=== PATIENT | male | born 1990 | race Caucasian/White ===

== ENCOUNTER 2017-06-30 17:08 | Emergency (ER) | payer OTHER ==
[2017-06-30 17:14] VITALS: BP 129/72; PULSE 75; TEMP 98; BMI 30.2
[2017-06-30] MEDS ORDERED: METOCLOPRAMIDE HCL INJECTION 10 MG/2 ML VIAL IVPB ONE (17:35)
[2017-06-30] MEDS ORDERED: SODIUM CHLORIDE 0.9% 1000 ML INFUS.BAG IV ONE (17:36)
--- NOTE | 2017-06-30 17:45 | PDOC ---
History of Present Illness - General Chief Complaint: Migraine Headache Stated Complaint: MIGRAINE Time Seen by Provider: 06/30/17 17:23 History Source: Patient Exam Limitations: No Limitations - History of Present Illness Initial Comments: 06/30/17 17:40 26 yr male no PMH presents with recent onset of headaches the past few months that cause nvd , diaphoresis and photophobia. Pt denies fever, no recent travel no head injury. Pt taking fioricet, imitrex at home with no relief. This headache is similair to past headaches however lasting longer. Timing/Duration: reports: constant Severity: Yes: severe Episode Description: left side, photophobia Past History - Past Medical History Allergies/Adverse Reactions: Allergies Allergy/AdvReac Type Severity Reaction Status Date / Time No Known Allergies Allergy Verified 06/30/17 17:14 Home Medications: Ambulatory Orders Acetaminophen/Caffeine/Butalb [Fioricet -] 1 tab PO PRN 06/30/17 Meclizine HCl [Antivert -] 25 mg PO BID PRN #14 tablet 06/30/17 Ondansetron [Zofran *Odt*] 8 mg SL TID #21 od.tablet 06/30/17 Sumatriptan Succinate [Imitrex] 50 mg PO BID 06/30/17 Other medical history: MIGRAINES - Psycho/Social/Smoking Cessation Hx Suicidal Ideation: No Smoking History: Never smoked Information on smoking cessation initiated: No Neuro Specific PMHX - Complaint Specific PMHX Glaucoma: No Herniated Disk: No Laminectomy: No Migraine: Yes (recent diagnosis with migraines) Multiple Sclerosis: No Neuropathy: No TIA: No Review of Systems - Review of Systems Able to Perform ROS?: Yes Is the patient limited [place] proficient: No Constitutional: No: Symptoms Reported HEENTM: No: Symptoms Reported Respiratory: No: Symptoms reported Cardiac (ROS): No: Symptoms Reported ABD/GI: Yes: Symptoms Reported, See HPI, Diarrhea, Nausea, Vomiting : No: Symptoms Reported Musculoskeletal: No: Symptoms Reported Integumentary: No: Symptoms Reported Neurological: Yes: Symptoms reported, Headache *Physical Exam - Vital Signs Last Vital Signs Temp Pulse Resp BP Pulse Ox 98 F 75 18 129/72 100 06/30/17 17:10 06/30/17 17:10 06/30/17 17:10 06/30/17 17:10 06/30/17 17:10 - Physical Exam General Appearance: Yes: Nourished, Mild Distress (appears uncomfortable) HEENT: positive: EOMI, TMs Normal, Other (pos photophobia) Neck: negative: Tender Respiratory/Chest: positive: Lungs Clear, Normal Breath Sounds Cardiovascular: positive: Regular Rhythm, Regular Rate Musculoskeletal: positive: Normal Inspection Extremity: positive: Normal Capillary Refill, Normal Inspection, Normal Range of Motion Integumentary: positive: Dry, Warm, Pale Neurologic: positive: Fully Oriented, Alert, Normal Mood/Affect, Other (gait not tested due to pt dizzyness) ED Treatment Course - LABORATORY CBC & Chemistry Diagram: 06/30/17 17:40 06/30/17 17:40 Medical Decision Making - Medical Decision Making 06/30/17 17:45 cc: headache for 5 days with nvd photophobia pt has had recent dx of migraines, multiple ER visits, ENT and neurologist pt has paperwork showing abnormal finding left side on the EEG and a referal for MRI pt states no meds are helpint at home, is weak and has diff walking due to vertigo pt to be transfered to MAIN ER for further care I have endorsed the pt to Sravanthi NGUYEN charge nurse Jennifer is aware and states to place pt in the hallway outside of the xray room. I have ordered lab work, benadryl, reglan and fluids 06/30/17 17:46 *DC/Admit/Observation/Transfer Diagnosis at time of Disposition: Intractable migraine - Discharge Dispostion Disposition: HOME Condition at time of disposition: Improved - Prescriptions Prescriptions: Meclizine HCl [Antivert -] 25 mg PO BID PRN #14 tablet PRN Reason: dizziness Ondansetron [Zofran *Odt*] 8 mg SL TID #21 od.tablet - Patient Instructions Printed Discharge Instructions: DI for Migraine, DI for Vertigo Additional Instructions: As discussed, you MUST follow up and get the MRI ordered for you by your neurologist. Please take your medications as prescribed. If you experience any new or worsening headache, persistent vomiting, fever, chills, diarrhea, or any new or worsening symptoms, please return to the ER.
[2017-06-30] MEDS ORDERED: METOCLOPRAMIDE HCL INJECTION 10 MG/2 ML VIAL ONE (17:46)
[2017-06-30 17:55] LABS: BASOPHIL 0.2 % (0-2.0); EOSINOPHIL 2.4 % (0-4.5); MCH 30.3 pg (25.7-33.7); MCHC 35.4 g/dl (32.0-35.9); MEAN CELL VOLUME 85.6 fl (80-96); MEAN PLT VOLUME 9.3 fl (7.5-11.1); NEUTROPHILS 57.5 % (42.8-82.8); PLATELET COUNT 203 K/MM3 (134-434); WHITE BLOOD COUNT 5.8 K/mm3 (4.0-10.0)
[2017-06-30] MEDS ORDERED: DEXAMETHASONE SOD PHOSPHATE 10 MG/1 ML VIAL IVPUSH ONE (18:01)
--- NOTE | 2017-06-30 18:10 | PDOC ---
History of Present Illness - General Chief Complaint: Migraine Headache Stated Complaint: MIGRAINE Time Seen by Provider: 06/30/17 17:23 History Source: Patient Exam Limitations: No Limitations - History of Present Illness Initial Comments: CHIEF COMPLAINT: 26 y/o afebrile male with no significant PMH c/o headache x 5 days. HISTORY OF PRESENT ILLNESS: The patient states he also has associated nausea, vomiting, diarrhea, photophobia and ringing in his ears. He states for the past 5 days the headache and associated symptoms have not subsided. He admits to feeling like he is going to fall over any time he stands and feeling like he is constantly spinning. He states he has been getting these headaches for the past 4 months intermittently. He has been seen at [facility] where he had a CT scan of his head. He was seen by an ENT doctor and a Neurologist, and was started on Imitrex and Fioricet, which he states don't work. He had an abnormal finding on the left side of his EEG and was referred for MRI. He denies f/c, neck pain, changes in vision, cough, hemoptysis, CP, SOB, abd pain, back pain, numbness/tingling in extremities. Vital signs on arrival are within normal limits. REVIEW OF SYSTEMS: GENERAL/CONSTITUTIONAL: No fever/chills. No weakness. No weight change. HEAD, EYES, EARS, NOSE AND THROAT: +photophobia. +b/l tinnitus. No sore throat. CARDIOVASCULAR: No chest pain or shortness of breath. RESPIRATORY: No cough, wheezing, or hemoptysis. GASTROINTESTINAL: +nausea, vomiting, diarrhea. No abdominal pain. GENITOURINARY: No dysuria, frequency, or change in urination. MUSCULOSKELETAL: No joint or muscle swelling or pain. No neck or back pain. SKIN: No rash or easy bruising. NEUROLOGIC: +headache and vertigo. No loss of consciousness or loss of sensation. PHYSICAL EXAM: GENERAL: The patient is awake, alert, and fully oriented, with eyes squeezed shut. HEAD: Normal with no signs of trauma. NECK: No meningismus ENT: Pupils equal, round and reactive to light, extraocular movements intact, sclera anicteric, conjunctiva clear. Photophobia to ambient light. No nystagmus. LUNGS: Clear to auscultation bilaterally. Normal excursion. No respiratory distress or use of accessory muscles. CV: RRR, S1/S2, no MRG. Cap refill < 2 sec. ABDOMEN: Soft, non-distended, non-tender even to deep palpation, no hepatomegaly or splenomegaly, no masses. EXTREMITIES: Normal range of motion, no edema. NEUROLOGICAL: Normal speech. CN II-XII grossly intact. Gait not assessed in the ER. PSYCH: Normal mood, normal affect. SKIN: Warm, dry, normal turgor, no rashes or lesions noted. Past History - Past Medical History Allergies/Adverse Reactions: Allergies Allergy/AdvReac Type Severity Reaction Status Date / Time No Known Allergies Allergy Verified 06/30/17 17:14 Other medical history: MIGRAINES - Psycho/Social/Smoking Cessation Hx Suicidal Ideation: No Smoking History: Never smoked Information on smoking cessation initiated: No Neuro Specific PMHX - Complaint Specific PMHX Glaucoma: No Herniated Disk: No Laminectomy: No Migraine: Yes (recent diagnosis with migraines) Multiple Sclerosis: No Neuropathy: No TIA: No Review of Systems - Review of Systems Is the patient limited Malay proficient: No *Physical Exam - Vital Signs Last Vital Signs Temp Pulse Resp BP Pulse Ox 98 F 75 18 129/72 100 06/30/17 17:10 06/30/17 17:10 06/30/17 17:10 06/30/17 17:10 06/30/17 17:10 ED Treatment Course - LABORATORY CBC & Chemistry Diagram: 06/30/17 17:40 06/30/17 17:40 - ADDITIONAL ORDERS Additional order review: 06/30/17 17:40 RBC 5.17 MCV 85.6 MCHC 35.4 RDW 12.0 MPV 9.3 Neutrophils % 57.5 Lymphocytes % 34.8 Monocytes % 5.1 Eosinophils % 2.4 Basophils % 0.2 - RADIOLOGY Radiology Studies Ordered: Category Date Time Status HEAD CT WITHOUT CONTRAST [CT] Stat CT Scan 06/30/17 18:02 Ordered - Medications Given in the ED: ED Medications Discontinued Medications Generic Name Dose Route Start Last Admin Trade Name Freq PRN Reason Stop Dose Admin Diphenhydramine HCl 12.5 mg 06/30/17 17:35 06/30/17 17:57 Benadryl Injection - IVPB 06/30/17 17:36 12.5 mg ONCE ONE Administration Metoclopramide HCl 10 mg 06/30/17 17:35 06/30/17 17:52 Reglan Injection - IVPB 06/30/17 17:36 10 mg ONCE ONE Administration Sodium Chloride 1,000 ml 06/30/17 17:36 06/30/17 17:50 Normal Saline - IV 06/30/17 17:37 1,000 ml ONCE ONE Administration Medical Decision Making - Medical Decision Making A/P: 26 y/o afebrile male with intractable migraine x 5 days with associated photophobia, n/v/d, and tinnitus. Plan is as follows: 1. Labs 2. Head CT 3. IV reglan 4. IV benadryl 5. IV decadron 6. IV fluids I am signing this patient out to my colleague: BRIANNE Monterroso In brief, this patient is being seen in the ED for a chief complaint of: intractable migraine with photophobia, tinnitus, n/v/d. I have completed the initial assessment interview note and have ordered: labs, Head CT, meds I have reviewed the following results: cbc Pending results are: rest Please call the PCP: none Plan for disposition is as follows: Pending *DC/Admit/Observation/Transfer Diagnosis at time of Disposition: Intractable migraine Qualifiers: Migraine type: unspecified Status migrainosus presence: with status migrainosus Qualified Code(s): G43.911 - Migraine, unspecified, intractable, with status migrainosus
[2017-06-30] MEDS ORDERED: DEXAMETHASONE SOD PHOSPHATE 10 MG/1 ML VIAL ONE (18:19)
[2017-06-30 18:21] LABS: ALBUMIN 3.8 g/dl (3.4-5.0); ANION GAP 6 (8-16); CO2 28 mmol/L (21-32); GLUCOSE,RANDOM 113 mg/dL (74-106); SGOT/AST 8 U/L (15-37); SGPT/ALT 25 U/L (12-78)
[2017-06-30 18:23] LABS: ALK PHOS 67 U/L (45-117); BILIRUBIN,TOTAL 0.8 mg/dL (0.2-1.0); TOT PROT 7.2 g/dl (6.4-8.2)
--- NOTE | 2017-06-30 19:21 | PDOC ---
*Physical Exam - Vital Signs Last Vital Signs Temp Pulse Resp BP Pulse Ox 98 F 75 18 129/72 100 06/30/17 17:10 06/30/17 17:10 06/30/17 17:10 06/30/17 17:10 06/30/17 17:10 - Physical Exam Comments: 06/30/17 19:20 Sign-out received from outgoing ER provider Gela. Pt interviewed and examined. Ancillary studies reviewed. Awaiting head CT. 06/30/17 21:[address] negative. -30 mg Toradol IV Patient reassessed. Continues to report "really bad dizziness." -25 mg Meclizine - 4mg Zofran 06/30/17 22:14 -Alexis maneuver performed Patient reports being able to walk and that "the dizziness is better now." He also reports that the nausea has resolved. Will discharge to home with Meclizine, patient reports that he will follow up and have MRI done per neurology. Advised patient to take medication as prescribed and f/u with neurology as planned. Advised patient of signs of symptoms for return to ER; patient verbalized understanding and agrees to plan. ED Treatment Course - LABORATORY CBC & Chemistry Diagram: 06/30/17 17:40 06/30/17 17:40 - ADDITIONAL ORDERS Additional order review: Laboratory Results 06/30/17 17:40 Sodium 137 Potassium 3.9 Chloride 103 Carbon Dioxide 28 Anion Gap 6 L BUN 12 Creatinine 1.0 Creat Clearance w eGFR > 60 Random Glucose 113 H Calcium 9.0 Total Bilirubin 0.8 AST 8 L ALT 25 Alkaline Phosphatase 67 Total Protein 7.2 Albumin 3.8 06/30/17 17:40 RBC 5.17 MCV 85.6 MCHC 35.4 RDW 12.0 MPV 9.3 Neutrophils % 57.5 Lymphocytes % 34.8 Monocytes % 5.1 Eosinophils % 2.4 Basophils % 0.2 - Medications Given in the ED: ED Medications Discontinued Medications Generic Name Dose Route Start Last Admin Trade Name Jcarlos PRN Reason Stop Dose Admin Dexamethasone Sodium Phosphate 10 mg 06/30/17 18:01 06/30/17 18:23 Decadron Injection - IVPUSH 06/30/17 18:02 10 mg ONCE ONE Administration Diphenhydramine HCl 12.5 mg 06/30/17 17:35 06/30/17 17:57 Benadryl Injection - IVPB 06/30/17 17:36 12.5 mg ONCE ONE Administration Metoclopramide HCl 10 mg 06/30/17 17:35 06/30/17 17:52 Reglan Injection - IVPB 06/30/17 17:36 10 mg ONCE ONE Administration Sodium Chloride 1,000 ml 06/30/17 17:36 06/30/17 17:50 Normal Saline - IV 06/30/17 17:37 1,000 ml ONCE ONE Administration *DC/Admit/Observation/Transfer Diagnosis at time of Disposition: Intractable migraine Qualifiers: Migraine type: unspecified Status migrainosus presence: with status migrainosus Qualified Code(s): G43.911 - Migraine, unspecified, intractable, with status migrainosus - Discharge Dispostion Disposition: HOME Condition at time of disposition: Improved - Prescriptions Prescriptions: Meclizine HCl [Antivert -] 25 mg PO BID PRN #14 tablet PRN Reason: dizziness Ondansetron [Zofran *Odt*] 8 mg SL TID #21 od.tablet - Patient Instructions Printed Discharge Instructions: DI for Migraine, DI for Vertigo Additional Instructions: As discussed, you MUST follow up and get the MRI ordered for you by your neurologist. Please take your medications as prescribed. If you experience any new or worsening headache, persistent vomiting, fever, chills, diarrhea, or any new or worsening symptoms, please return to the ER.
[2017-06-30] MEDS ORDERED: KETOROLAC TROMETHAMINE 30 MG/1 ML VIAL IVPUSH ONE (20:12)
[2017-06-30] MEDS ORDERED: KETOROLAC TROMETHAMINE 30 MG/1 ML VIAL ONE (20:13)
[2017-06-30] MEDS ORDERED: MECLIZINE HCL 25 MG TABLET (FP) PO ONE (21:17)
[2017-06-30] MEDS ORDERED: ONDANSETRON 4 MG/2 ML VIAL IVPUSH ONE (21:20)
[2017-06-30] MEDS ORDERED: MECLIZINE HCL 25 MG TABLET (FP) ONE (21:21)
[2017-06-30] MEDS ORDERED: ONDANSETRON 4 MG/2 ML VIAL ONE (21:22)
--- NOTE | 2017-06-30 22:35 | PDOC ---
*Physical Exam - Vital Signs Last Vital Signs Temp Pulse Resp BP Pulse Ox 98 F 75 18 129/72 100 06/30/17 17:10 06/30/17 17:10 06/30/17 17:10 06/30/17 17:10 06/30/17 17:10 ED Treatment Course - LABORATORY CBC & Chemistry Diagram: 06/30/17 17:40 06/30/17 17:40 - ADDITIONAL ORDERS Additional order review: Laboratory Results 06/30/17 06/30/17 17:40 17:40 Sodium 137 Potassium 3.9 Chloride 103 Carbon Dioxide 28 Anion Gap 6 L BUN 12 Creatinine 1.0 Creat Clearance w eGFR > 60 Random Glucose 113 H Calcium 9.0 Total Bilirubin 0.8 AST 8 L ALT 25 Alkaline Phosphatase 67 C-Reactive Protein < 0.3 Total Protein 7.2 Albumin 3.8 06/30/17 17:40 RBC 5.17 MCV 85.6 MCHC 35.4 RDW 12.0 MPV 9.3 Neutrophils % 57.5 Lymphocytes % 34.8 Monocytes % 5.1 Eosinophils % 2.4 Basophils % 0.2 - Medications Given in the ED: ED Medications Discontinued Medications Generic Name Dose Route Start Last Admin Trade Name Freq PRN Reason Stop Dose Admin Dexamethasone Sodium Phosphate 10 mg 06/30/17 18:01 06/30/17 18:23 Decadron Injection - IVPUSH 06/30/17 18:02 10 mg ONCE ONE Administration Diphenhydramine HCl 12.5 mg 06/30/17 17:35 06/30/17 17:57 Benadryl Injection - IVPB 06/30/17 17:36 12.5 mg ONCE ONE Administration Ketorolac Tromethamine 30 mg 06/30/17 20:12 06/30/17 20:16 Toradol Injection - IVPUSH 06/30/17 20:13 30 mg ONCE ONE Administration Meclizine HCl 25 mg 06/30/17 21:17 06/30/17 21:25 Antivert - PO 06/30/17 21:18 25 mg ONCE ONE Administration Metoclopramide HCl 10 mg 06/30/17 17:35 06/30/17 17:52 Reglan Injection - IVPB 06/30/17 17:36 10 mg ONCE ONE Administration Ondansetron HCl 4 mg 06/30/17 21:20 06/30/17 21:25 Zofran Injection IVPUSH 06/30/17 21:21 4 mg ONCE ONE Administration Sodium Chloride 1,000 ml 06/30/17 17:36 06/30/17 17:50 Normal Saline - IV 06/30/17 17:37 1,000 ml ONCE ONE Administration Medical Decision Making - Medical Decision Making 06/30/17 22:33 Agree with TAP OUT OPERATOR evaluation, assessment, and plan. 26 M with h/o migraines and vertigo presenting with vertiginous symptoms. Pt states that his migraines are often associated with vertigo. Upon my evaluation , pt states he is feeling much better s/p medications, which included meclizine , reglan, IVF, dexamethasone. Neuro exam at this time is completely benign. Pt with no nystagmus, able to ambulate with steady gait. No focal neuro deficits to suggest acute intracranial process. - DC home with meclizine - F/u neurologist *DC/Admit/Observation/Transfer Diagnosis at time of Disposition: Intractable migraine Qualifiers: Migraine type: unspecified Status migrainosus presence: with status migrainosus Qualified Code(s): G43.911 - Migraine, unspecified, intractable, with status migrainosus - Discharge Dispostion Disposition: HOME Condition at time of disposition: Improved - Prescriptions Prescriptions: Meclizine HCl [Antivert -] 25 mg PO BID PRN #14 tablet PRN Reason: dizziness Ondansetron [Zofran *Odt*] 8 mg SL TID #21 od.tablet - Referrals - Patient Instructions Printed Discharge Instructions: DI for Migraine, DI for Vertigo Additional Instructions: As discussed, you MUST follow up and get the MRI ordered for you by your neurologist. Please take your medications as prescribed. If you experience any new or worsening headache, persistent vomiting, fever, chills, diarrhea, or any new or worsening symptoms, please return to the ER. - Post Discharge Activity - Attestations Physician Attestion: 06/30/17 22:35 I, Dr. Aneudy Estrada MD, attest that this document has been prepared under my direction and personally reviewed by me in its entirety. I further attest, that it accurately reflects all work, treatment, procedures and medical decision -making performed by me.
== END 2017-06-30 22:41 | disposition home or self-care (01) ==
LOC: JER 17:08
PROC: 3E033GC Introduction of Other Therapeutic Substance into Peripheral Vein, Percutaneous Approach (ICD-10-PCS; principal; 2017-06-30)
PROC: 3E0333Z Introduction of Anti-inflammatory into Peripheral Vein, Percutaneous Approach (ICD-10-PCS; 2017-06-30)
PROC: 3E0337Z Introduction of Electrolytic and Water Balance Substance into Peripheral Vein, Percutaneous Approach (ICD-10-PCS; 2017-06-30)
DX: G43.911 Migraine, unspecified, intractable, with status migrainosus (principal)
CPT/HCPCS: 36415; 70450-TC; 80053; 85025; 85651; 86140; 96374; 96375; 99282-25

== ENCOUNTER 2017-09-17 01:50 | Inpatient (IN) | payer OTHER ==
--- NOTE | 2017-09-17 02:46 | PDOC ---
History of Present Illness - General History Source: Patient Exam Limitations: No Limitations - History of Present Illness Initial Comments: 09/17/17 03:11 The patient is a 27 year old male, with a significant past medical history of headache who presents to the emergency department with worsening headache for the past 2 days. Patient reports associated dizziness ,nausea and vomiting. He states he is unable to tolerate PO and cannot take his medications. Patient reports his dizziness is exacerbated upon positional head changes. Patient describes the dizziness as room spins. Patient denies any weakness, numbness or tingling. Patient denies any light/sound sensitivity. <Dinora Conde - Last Filed: 09/17/17 03:11> - General History Source: Patient <EstuardoSrikanth osei - Last Filed: 09/17/17 19:34> - General Chief Complaint: Weakness Stated Complaint: DIZZINESS Time Seen by Provider: 09/17/17 02:42 Past History <Dinora Conde - Last Filed: 09/17/17 03:11> - Suicide/Smoking/Psychosocial Hx Smoking History: Never smoked Information on smoking cessation initiated: No Hx Alcohol Use: No Drug/Substance Use Hx: No <Srikanth Rodriguez - Last Filed: 09/17/17 19:34> - Past Medical History Allergies/Adverse Reactions: Allergies Allergy/AdvReac Type Severity Reaction Status Date / Time No Known Allergies Allergy Verified 09/17/17 02:31 Home Medications: Ambulatory Orders Acetaminophen/Caffeine/Butalb [Fioricet -] 1 tab PO PRN 06/30/17 Meclizine HCl [Antivert -] 25 mg PO BID PRN #14 tablet 06/30/17 Ondansetron [Zofran *Odt*] 8 mg SL TID #21 od.tablet 06/30/17 Sumatriptan Succinate [Imitrex] 50 mg PO BID 06/30/17 Review of Systems - Review of Systems Able to Perform ROS?: Yes Comments:: 09/17/17 03:12 CONSTITUTIONAL: Absent: fever, no chills, no fatigue EYES: Absent: visual changes ENT: Absent: ear pain, no sore throat CARDIOVASCULAR: Absent: chest pain, no palpitations RESPIRATORY: Absent: cough, no SOB GI: + nausea vomiting Absent: abdominal pain, no constipation, no diarrhea GENITOURINARY: Absent: dysuria, no frequency, no hematuria MUSCULOSKELETAL: Absent: back pain, no arthralgia, no myalgia SKIN: Absent: rash NEUROLOGICAL: +headache +dizziness <Dinora Conde - Last Filed: 09/17/17 03:11> *Physical Exam - Vital Signs Last Vital Signs Temp Pulse Resp BP Pulse Ox 64 14 117/77 100 09/17/17 02:31 09/17/17 02:31 09/17/17 02:31 09/17/17 02:31 - Physical Exam Comments: 09/17/17 03:12 GENERAL: Well-appearing, well-nourished. No apparent distress. HEENT: Normocephalic, atraumatic. PERRL, EOM intact. CARDIOVASCULAR: Normal S1, S2. Regular rate and rhythm. PULMONARY: Clear to auscultation bilaterally. ABDOMEN: Soft, non-distended, non-tender. EXTREMITIES: Normal ROM in all four extremities. No gross deformities. SKIN: Warm, dry. No rash NEUROLOGICAL: No focal neurological deficits. <Dinora Conde - Last Filed: 09/17/17 03:11> - Vital Signs Last Vital Signs Temp Pulse Resp BP Pulse Ox 64 14 117/77 100 09/17/17 02:31 09/17/17 02:31 09/17/17 02:31 09/17/17 02:31 <Srikanth Rodriguez - Last Filed: 09/17/17 19:34> ED Treatment Course - LABORATORY CBC & Chemistry Diagram: 09/17/17 03:16 09/17/17 03:13 <Srikanth Rodriguez - Last Filed: 09/17/17 19:34> Medical Decision Making - Medical Decision Making 09/17/17 19:33 Dr. Rodriguez: The scribe's documentation has been prepared under my direction and personally reviewed by me in its entirery. I confirm that the note above accurately reflects all work, treatment, procedures, and medical decision making performed by me. <Srikanth Rodriguez - Last Filed: 09/17/17 19:34> *DC/Admit/Observation/Transfer - Attestations Scribe Attestion: 09/17/17 03:12 Documentation prepared by Dionra Conde, acting as medical records administrator for Srikanth Rodriguez DO. <Dinora Conde - Last Filed: 09/17/17 03:11> - Discharge Dispostion Admit: Yes <Srikanth Rodriguez - Last Filed: 09/17/17 19:34> Diagnosis at time of Disposition: Vertigo Intractable migraine Qualifiers: Migraine type: with aura Status migrainosus presence: without status migrainosus Qualified Code(s): G43.119 - Migraine with aura, intractable, without status migrainosus
[2017-09-17] MEDS ORDERED: morphine CARPU-JECT 2 MG/1 ML DISP.SYRIN IVPUSH ONE (02:47)
[2017-09-17] MEDS ORDERED: ONDANSETRON 4 MG/2 ML VIAL IVPUSH STA (02:47)
[2017-09-17] MEDS ORDERED: SODIUM CHLORIDE 1,000 ML IV STA (02:47)
[2017-09-17] MEDS ORDERED: ONDANSETRON 4 MG/2 ML VIAL ONE (03:23)
[2017-09-17] MEDS ORDERED: morphine CARPU-JECT 10 MG/1 ML DISP.SYRIN ONE (03:23)
[2017-09-17 03:25] LABS: BASOPHIL 0.3 % (0-2.0); EOSINOPHIL 2.3 % (0-4.5); MCH 29.7 pg (25.7-33.7); MCHC 34.6 g/dl (32.0-35.9); MEAN CELL VOLUME 85.7 fl (80-96); MEAN PLT VOLUME 9.4 fl (7.5-11.1); NEUTROPHILS 53.6 % (42.8-82.8); PLATELET COUNT 190 K/MM3 (134-434); RDW 12.8 % (11.9-15.9); WHITE BLOOD COUNT 6.8 K/mm3 (4.0-10.0)
[2017-09-17] MEDS ORDERED: MECLIZINE HCL 25 MG TABLET (FP) PO STA (03:45)
[2017-09-17 03:48] LABS: ALBUMIN 3.8 g/dl (3.4-5.0); ALK PHOS 62 U/L (45-117); ANION GAP 10 (8-16); BILIRUBIN,TOTAL 1.1 mg/dL (0.2-1.0); CALCIUM 8.5 mg/dL (8.5-10.1); CO2 28 mmol/L (21-32); CREATININE 1.2 mg/dL (0.7-1.3); GLUCOSE,RANDOM 96 mg/dL (74-106); MAGNESIUM 2.1 mg/dL (1.8-2.4); SGOT/AST 8 U/L (15-37); SGPT/ALT 17 U/L (12-78)
[2017-09-17] MEDS ORDERED: MECLIZINE HCL 25 MG TABLET (FP) ONE (03:58)
[2017-09-17] MEDS ORDERED: MECLIZINE HCL 25 MG TABLET (FP) PO PRN (07:53)
--- NOTE | 2017-09-17 08:10 | HP ---
CHIEF COMPLAINT: dizziness. PCP: HISTORY OF PRESENT ILLNESS: 27 yo M with significant PMHx of migraines presents with 4 day history of worsening dizziness and headache. His migraines began approx. 7 mo. ago. He describes constant 8/10 non-radiating pressure like parietal pain that is accompanied by dizziness and nausea. Phono and photophobia present. He states that during these episodes he experienced diaphoresis, palpitations and violent vomiting. He has seen a neurologist in past and given triptans and meclizine with minimal relief of symptoms. He has MRI done in past which did not show any masses. He has been hospitalized multiple time in past 6mo. and is frustrated. Denies CP, MENDOZA, SOB, recent illness, fever, chills or abdominal pain. ER course was notable for: (1)Head CT was negative for acute IC pathology. (2)Meclizine for dizziness/ Zofran for nausea. (3)CBC and BMP WNL Recent Travel: Denies PAST MEDICAL HISTORY:migraines PAST SURGICAL HISTORY:none Social History: Smoking:never Alcohol:never Drugs: denies Family History: Allergies No Known Allergies Allergy (Verified 09/17/17 02:31) HOME MEDICATIONS: Home Medications Medication Instructions Recorded Acetaminophen/Caffeine/Butalb 1 tab PO PRN 06/30/17 [Fioricet -] Meclizine HCl [Antivert -] 25 mg PO BID PRN #14 tablet 06/30/17 Ondansetron [Zofran *Odt*] 8 mg SL TID #21 od.tablet 06/30/17 Sumatriptan Succinate [Imitrex] 50 mg PO BID 06/30/17 REVIEW OF SYSTEMS CONSTITUTIONAL: diaphoresis Absent: fever, chills, , generalized weakness, malaise, loss of appetite, weight change HEENT: Absent: rhinorrhea, nasal congestion, throat pain, throat swelling, difficulty swallowing, mouth swelling, ear pain, eye pain, visual changes CARDIOVASCULAR: palpitations Absent: chest pain, syncope,, irregular heart rate, lightheadedness, peripheral edema RESPIRATORY: Absent: cough, shortness of breath, dyspnea with exertion, orthopnea, wheezing, stridor, hemoptysis GASTROINTESTINAL: nausea, vomiting, diarrhea Absent: abdominal pain, abdominal distension,, constipation, melena, hematochezia GENITOURINARY: Absent: dysuria, frequency, urgency, hesitancy, hematuria, flank pain, genital pain MUSCULOSKELETAL: Absent: myalgia, arthralgia, joint swelling, back pain, neck pain SKIN: Absent: rash, itching, pallor HEMATOLOGIC/IMMUNOLOGIC: Absent: easy bleeding, easy bruising, lymphadenopathy, frequent infections ENDOCRINE: Absent: unexplained weight gain, unexplained weight loss, heat intolerance, cold intolerance NEUROLOGIC: Absent: headache, focal weakness or paresthesias, dizziness, unsteady gait, seizure, mental status changes, bladder or bowel incontinence PSYCHIATRIC: Absent: anxiety, depression, suicidal or homicidal ideation, hallucinations. PHYSICAL EXAMINATION Vital Signs - 24 hr 09/17/17 09/17/17 06:03 07:25 Temperature 98.8 F Pulse Rate [ 75 Apical] Respiratory 18 Rate Blood Pressure 118/70 [Left Arm] O2 Sat by Pulse 100 Oximetry (%) GENERAL: AAOx3, mild distress. HEAD: AT/NC EYES: PERLLA, EOMI, sclera anicteric, conjunctiva clear. No lid lag. EARS, NOSE, THROAT: Moist mucous membranes. NECK: supple without lymphadenopathy, JVD, or masses. LUNGS: CTAB. No wheezes, and no crackles. No accessory muscle use. HEART: RRR, normal S1 and S2 w/o M/G/R. ABDOMEN: Soft, NT/ND, normoactive bowel sounds, no guarding, no rebound, no masses. No hepatomegaly or splenomegaly. MUSCULOSKELETAL: Normal ROM at all joints. No bony deformities or tenderness. No CVA tenderness. UPPER EXTREMITIES: 2+ pulses, warm, well-perfused. No cyanosis. No clubbing. No peripheral edema. LOWER EXTREMITIES: 2+ pulses, warm, well-perfused. No calf tenderness. No peripheral edema. NEUROLOGICAL: Cranial nerves II-XII intact. Normal speech. gait not observed. PSYCHIATRIC: Appropriate mood and affect. SKIN: Warm, dry, normal turgor, no rashes or lesions noted, normal capillary refill. Laboratory Tests 09/17/17 09/17/17 03:13 03:16 WBC 6.8 RBC 5.47 Hgb 16.2 Hct 46.8 MCV 85.7 MCH 29.7 MCHC 34.6 RDW 12.8 Plt Count 190 MPV 9.4 Neutrophils % 53.6 Lymphocytes % 38.3 Monocytes % 5.5 Eosinophils % 2.3 Basophils % 0.3 Sodium 142 Potassium 4.0 Chloride 104 Carbon Dioxide 28 Anion Gap 10 BUN 12 Creatinine 1.2 Creat Clearance w eGFR > 60 Random Glucose 96 Calcium 8.5 Magnesium 2.1 Total Bilirubin 1.1 H D AST 8 L ALT 17 D Alkaline Phosphatase 62 Total Protein 7.0 Albumin 3.8 IMAGING: * CT/HEAD CT WITHOUT CONTRAST HISTORY PROVIDED: Dizziness TECHNIQUE: Sequential axial images were obtained from the base of the skull to the vertex. There is no evidence of acute intracranial hemorrhage, mass lesions or infarctions. There is no evidence of fracture or acute bony pathology. The visualized paranasal sinuses and mastoid air cells are clear. IMPRESSION: Normal CT scan of the head with no evidence of acute intracranial pathology. Reported By: Abel Loza MD 09/17/17 0812 ASSESSMENT/PLAN: 27 yo M with significant PMHx of migraines placed on observation intractable migraine with vertigo. Problem List - Problem (1) Intractable migraine Assessment/Plan: * IVF with NS @ 100ml/hr * Neurology consult. * Imitrex PRN (2) Vertigo Assessment/Plan: * Meclizine 25mg TID * Zofran for nausea. * IVF with NS @100ml/hr Visit type - Emergency Visit Emergency Visit: Yes ED Registration Date: 09/17/17 Care time: The patient presented to the Emergency Department on the above date and was hospitalized for further evaluation of their emergent condition. - New Patient This patient is new to me today: Yes Date on this admission: 09/17/17 - Critical Care Critical Care patient: No
[2017-09-17] MEDS ORDERED: SODIUM CHLORIDE 1,000 ML IV SCH (08:45)
[2017-09-17] MEDS ORDERED: ACETAMINOPHEN/CAFFEINE/BUTALBITAL 1 TAB PO SCH (08:45)
[2017-09-17] MEDS ORDERED: SUMAtriptan SUCCINATE 50 MG TABLET ONE (09:11)
[2017-09-17] MEDS ORDERED: SUMAtriptan SUCCINATE 50 MG TABLET PO SCH (10:00)
--- NOTE | 2017-09-17 11:46 | PN ---
Teaching Attending Note Name of Resident: Edison Maloney ATTENDING PHYSICIAN STATEMENT I saw and evaluated the patient. I reviewed the resident's note and discussed the case with the resident. I agree with the resident's findings and plan as documented. SUBJECTIVE: This is a 27 year old man with no past medical history of comes to the ER complaining of headache and dizziness. He first developed symptoms approximately 7 months ago. He had symptoms several times a week on and off for 4 months. He has had neurological and ENT evaluations which were unremarkable. MRI of brain and auditory canals was unremarkable. He has been treated with Imitrex and Antivert. This current episode started 4 days ago. When he has these symptoms, he also has nausea, vomiting, sweats, diarrhea and visual changes. Symptoms are better when lying in bed and worse when sitting or moving his head. OBJECTIVE: Vital Signs Period Temp Pulse Resp BP Sys/Munoz Pulse Ox Last 24 Hr 97.7 F-98.8 F 59-75 14-18 99-118/53-77 99-100 HEART: S1S2, RRR LUNGS: Clear ABDOMEN: Soft, non-tender, non-distended, normal BS EXTREMITIES: No edema NEUROLOGICAL: Alert, oriented Home Medications Medication Instructions Recorded Acetaminophen/Caffeine/Butalb 1 tab PO PRN 06/30/17 [Fioricet -] Meclizine HCl [Antivert -] 25 mg PO BID PRN #14 tablet 06/30/17 Ondansetron [Zofran *Odt*] 8 mg SL TID #21 od.tablet 06/30/17 Sumatriptan Succinate [Imitrex] 50 mg PO BID 06/30/17 Laboratory Results - last 24 hr 09/17/17 09/17/17 03:13 03:16 WBC 6.8 RBC 5.47 Hgb 16.2 Hct 46.8 MCV 85.7 MCH 29.7 MCHC 34.6 RDW 12.8 Plt Count 190 MPV 9.4 Neutrophils % 53.6 Lymphocytes % 38.3 Monocytes % 5.5 Eosinophils % 2.3 Basophils % 0.3 Sodium 142 Potassium 4.0 Chloride 104 Carbon Dioxide 28 Anion Gap 10 BUN 12 Creatinine 1.2 Creat Clearance w eGFR > 60 Random Glucose 96 Calcium 8.5 Magnesium 2.1 Total Bilirubin 1.1 H D AST 8 L ALT 17 D Alkaline Phosphatase 62 Total Protein 7.0 Albumin 3.8 ASSESSMENT AND PLAN: This is a 27 year old man with a 7 month history of intermittent dizziness and headaches who presented to the ER today with headache, dizziness, nausea and vomiting x 4 days. 1. Headache with vertigo
[2017-09-17] MEDS ORDERED: SUMAtriptan SUCCINATE 50 MG TABLET PO PRN (13:39)
[2017-09-17] MEDS ORDERED: ONDANSETRON *ODT* 4 MG TABLET SL PRN (14:00)
[2017-09-17 16:57] VITALS: BMI 29.2
[2017-09-17] MEDS ORDERED: ACETAMINOPHEN/CAFFEINE/BUTALBITAL 1 TAB PO PRN (23:46)
[2017-09-18 07:53] LABS: BASOPHIL 0.5 % (0-2.0); EOSINOPHIL 2.4 % (0-4.5); MCH 29.6 pg (25.7-33.7); MCHC 34.5 g/dl (32.0-35.9); MEAN CELL VOLUME 85.6 fl (80-96); MEAN PLT VOLUME 9.4 fl (7.5-11.1); NEUTROPHILS 57.3 % (42.8-82.8); PLATELET COUNT 179 K/MM3 (134-434); RDW 12.9 % (11.9-15.9); WHITE BLOOD COUNT 5.8 K/mm3 (4.0-10.0)
[2017-09-18 08:39] LABS: ALBUMIN 3.7 g/dl (3.4-5.0); ANION GAP 11 (8-16); CALCIUM 8.9 mg/dL (8.5-10.1); CO2 26 mmol/L (21-32); GLUCOSE,RANDOM 77 mg/dL (74-106)
[2017-09-18 08:44] LABS: ALK PHOS 58 U/L (45-117); BILIRUBIN,TOTAL 0.9 mg/dL (0.2-1.0); PHOSPHOROUS 3.2 mg/dL (2.5-4.9); SGOT/AST 10 U/L (15-37); SGPT/ALT 16 U/L (12-78)
--- NOTE | 2017-09-18 08:56 | CON.NEURO ---
Consult - History of Present Illness History of Present Illness: 27 yo M with significant PMHx of migraines presents with 4 day history of worsening dizziness and headache. His migraines began approx. 7 mo. ago. He describes constant 8/10 non-radiating pressure like parietal pain that is accompanied by dizziness and nausea. Phono and photophobia present. He states that during these episodes he experienced diaphoresis, palpitations and violent vomiting. He has seen a neurologist in past and given triptans and meclizine with minimal relief of symptoms. He has MRI done in past which did not show any masses. He has been hospitalized multiple time in past 6mo. Denies CP, MENDOZA, SOB , recent illness, fever, chills or abdominal pain. HX of MENDOZA, migraines though they have been worse x 1 week. IMPRESSION: Normal CT scan of the head with no evidence of acute intracranial pathology. - History Source History Provided By: Patient - Past Surgical History Past Surgical History: Yes: None - Alcohol/Substance Use Hx Alcohol Use: No - Smoking History Smoking history: Never smoked Have you smoked in the past 12 months: No Home Medications - Allergies Allergies/Adverse Reactions: Allergies Allergy/AdvReac Type Severity Reaction Status Date / Time No Known Allergies Allergy Verified 09/17/17 02:31 - Home Medications Home Medications: Ambulatory Orders Acetaminophen/Caffeine/Butalb [Fioricet -] 1 tab PO PRN 06/30/17 Meclizine HCl [Antivert -] 25 mg PO BID PRN #14 tablet 06/30/17 Ondansetron [Zofran *Odt*] 8 mg SL TID #21 od.tablet 06/30/17 Sumatriptan Succinate [Imitrex] 50 mg PO BID 06/30/17 Physical Exam-Neuro Vital Signs: Vital Signs Temperature 98.1 F 09/18/17 06:30 Pulse Rate 67 09/18/17 06:30 Respiratory Rate 20 09/18/17 06:30 Blood Pressure 99/64 09/18/17 06:30 O2 Sat by Pulse Oximetry (%) 97 09/18/17 00:00 Constitutional: Yes: Well Nourished Neck: Yes: WNL Labs: CBC, BMP 09/18/17 06:20 09/18/17 06:20 - Neuro Exam Level Of Consciousness: Yes: Alert, Oriented to Person, Oriented to Place (EOMI , VFF, no facial, motor 5/5, nl reflexes, ) Imaging - Results Cat Scan: Report Reviewed, Image Reviewed Problem List - Problems (1) Intractable migraine Code(s): G43.919 - MIGRAINE, UNSP, INTRACTABLE, WITHOUT STATUS MIGRAINOSUS Qualifiers: Migraine type: with aura Status migrainosus presence: without status migrainosus Qualified Code(s): G43.119 - Migraine with aura, intractable , without status migrainosus; G43.119 - Migraine with aura, intractable, without status migrainosus; G43.119 - Migraine with aura, intractable, without status migrainosus Assessment/Plan chronic migraine with status migrainousis nonofiocal exam and prior scans reportedly (-) will give DHE 0.5 IV8, premeditate with REGLAn 10 IV q8 can add decadron/Toradol in AM if continues on elavil (as outpt ) will FU Dr Wright
--- NOTE | 2017-09-18 11:05 | PN ---
Progress Note (short form) - Note Progress Note: Subjective: The patient was seen and examined at the bedside, he reports still having vertigo which improves when he closes his eyes. He is also reporting headache. Discussed with Dr. Wright, will start Migranal and Reglan for status migrinosis Current Medications Generic Name Dose Route Start Last Admin Trade Name Freq PRN Reason Stop Dose Admin Acetaminophen/Butalbital/Caffeine 1 tablet 09/17/17 23:46 Fioricet - PO Q4H PRN HEADACHE Dihydroergotamine Mesylate 0.5 mg 09/18/17 11:00 D.H.E. - IVPB Q8H RON Meclizine HCl 25 mg 09/17/17 07:53 09/17/17 15:56 Antivert - PO 25 mg TID PRN Administration VERTIGO Metoclopramide HCl 10 mg 09/18/17 10:58 Reglan Injection - IVPUSH Q8H PRN NAUSEA AND/OR VOMITING Ondansetron HCl 8 mg 09/17/17 14:00 09/17/17 16:10 Zofran Odt - SL 8 mg TID PRN Administration Objective: Vital Signs Period Temp Pulse Resp BP Sys/Munoz Pulse Ox Last 24 Hr 97.4 F-98.1 F 58-73 16-20 95-119/49-64 97-98 Physical Exam: General: NAD, covering his eyes with his arm Lungs: CTA bilaterally Heart: RRR, S1S2 Abd: Soft, non-tender, non-distended. Normoactive bowel sounds Ext: Warm, well-perfused. 2+ DP/PT bilaterally Neuro: Unable to assess CN as patient becomes dizzy when his eyes are open CBCD WBC 5.8 K/mm3 (4.0-10.0) 09/18/17 06:20 RBC 5.50 M/mm3 (4.00-5.60) 09/18/17 06:20 Hgb 16.3 GM/dL (11.7-16.9) 09/18/17 06:20 Hct 47.0 % (35.4-49) 09/18/17 06:20 MCV 85.6 fl (80-96) 09/18/17 06:20 MCHC 34.5 g/dl (32.0-35.9) 09/18/17 06:20 RDW 12.9 % (11.9-15.9) 09/18/17 06:20 Plt Count 179 K/MM3 (134-434) 09/18/17 06:20 MPV 9.4 fl (7.5-11.1) 09/18/17 06:20 CMP Sodium 140 mmol/L (136-145) 09/18/17 06:20 Potassium 4.4 mmol/L (3.5-5.1) 09/18/17 06:20 Chloride 103 mmol/L (98-107) 09/18/17 06:20 Carbon Dioxide 26 mmol/L (21-32) 09/18/17 06:20 Anion Gap 11 (8-16) 09/18/17 06:20 BUN 8 mg/dL (7-18) D 09/18/17 06:20 Creatinine 1.0 mg/dL (0.7-1.3) 09/18/17 06:20 Creat Clearance w eGFR > 60 (>60) 09/18/17 06:20 Random Glucose 77 mg/dL (74-106) 09/18/17 06:20 Calcium 8.9 mg/dL (8.5-10.1) 09/18/17 06:20 Total Bilirubin 0.9 mg/dL (0.2-1.0) 09/18/17 06:20 AST 10 U/L (15-37) L D 09/18/17 06:20 ALT 16 U/L (12-78) 09/18/17 06:20 Alkaline Phosphatase 58 U/L (45-117) 09/18/17 06:20 Total Protein 7.0 g/dl (6.4-8.2) 09/18/17 06:20 Albumin 3.7 g/dl (3.4-5.0) 09/18/17 06:20 Assessment: This is a 27 year old male with PMHx of migraines who presented to the ED with 4 days of worsening dizziness and headache. Plan: 1) Neuro: Status migrainosus - Has had MRI in past with no mass per patient - Head CT with no evidence of acute intracranial pathology - Start Dihydroergotamine 0.5 mg IVPB q8h - Will premedicate with Reglan 10mg IVPB q8h - Monitor closely for resolution of symptoms - Baseline EKG reviewed: NSR @64bpm - F/u neurology consult 2) F/E/N: - Regular diet - Monitor electrolytes 3) Prophylaxis: - OOB ambulating - SCDs bilaterally 4) Dispo: - The patient is approaching his second midnight in observation status. His symptoms are persistent and has been diagnoses by neurology with status migrainosus. He will require IV Reglan and Dihydroergotamine until his symptoms improve. For these reasons the patient will be converted to inpatient CODE STATUS: FULL CODE Visit type - Emergency Visit Emergency Visit: Yes ED Registration Date: 09/17/17 Care time: The patient presented to the Emergency Department on the above date and was hospitalized for further evaluation of their emergent condition. - New Patient This patient is new to me today: Yes Date on this admission: 09/18/17 - Critical Care Critical Care patient: No
[2017-09-18] MEDS ORDERED: METOCLOPRAMIDE HCL INJECTION 10 MG/2 ML VIAL IVPUSH PRN (11:30)
[2017-09-18] MEDS: DIHYDROERGOTAMINE MESYLATE 1 MG/1 ML AMPULE IVPB SCH ×2 (12:44→20:18)
[2017-09-18] MEDS ORDERED: PT OWN MED DRAWER 7, Y5N ONE ×2 (15:14→20:13)
--- NOTE | 2017-09-18 17:14 | EKG ---
Test Reason : Blood Pressure : / mmHG Vent. Rate : 064 BPM Atrial Rate : 064 BPM P-R Int : 182 ms QRS Dur : 094 ms QT Int : 370 ms P-R-T Axes : 056 074 040 degrees QTc Int : 381 ms NORMAL SINUS RHYTHM NORMAL ECG NO PREVIOUS ECGS AVAILABLE Confirmed by OVI PEARL, GAL ([id number]) on 09/18/2017 5:14:07 PM Referred By: RHEA MITCHELL Confirmed By:GAL DIOR MD
[2017-09-19] MEDS: DIHYDROERGOTAMINE MESYLATE 1 MG/1 ML AMPULE IVPB SCH (03:49)
--- NOTE | 2017-09-19 08:52 | DS ---
Physical Examination Vital Signs: Vital Signs Temperature 98.6 F 09/19/17 07:00 Pulse Rate 65 09/19/17 07:00 Respiratory Rate 20 09/19/17 07:00 Blood Pressure 116/62 09/19/17 07:00 O2 Sat by Pulse Oximetry (%) 96 09/18/17 22:00 Findings/Remarks: Physical Exam: General: NAD, A&Ox3 HEENT: PERRLA, EOMI Lungs: CTA bilaterally Heart: RRR, S1S2 Abd: Soft, non-tender, non-distended. Labs: CBC, BMP 09/18/17 06:20 09/18/17 06:20 Discharge Summary Reason For Visit: INTRACTABLE MIGRAINE VERTIGO Current Active Problems Intractable migraine (Acute) Vertigo (Acute) Hospital Course: Unexpected rapid recovery Condition: Improved - Instructions Diet, Activity, Other Instructions: Please return to the ED with new, persistent, or worsening symptoms. Please follow-up with providers as indicated. You are being discharged on a Medrol Dose Pack. Please take as instructed and do NOT stop taking it abruptly. Referrals: Lam Amador MD [Staff Physician] - 1 Week Aayush Wright DO [Staff Physician] - (Please follow-up with neurology within 1 week for further management of your migraines) Disposition: HOME - Home Medications Comprehensive Discharge Medication List: Ambulatory Orders Acetaminophen/Caffeine/Butalb [Fioricet -] 1 tab PO PRN 06/30/17 Meclizine HCl [Antivert -] 25 mg PO BID PRN #14 tablet 06/30/17 Sumatriptan Succinate [Imitrex] 50 mg PO BID 06/30/17 Methylprednisolone [Medrol Dose Brandt] 4 mg PO ASDIR #21 tablet 09/19/17 Ondansetron [Zofran *Odt*] 4 mg SL TID #21 od.tablet 09/19/17
[2017-09-19 10:45] VITALS: BP 115/65; PULSE 72; TEMP 97.3
== END 2017-09-19 10:35 | disposition home or self-care (01) | DRG 54 ==
LOC: JER 01:50 → JERBED 05:46 → UNDOADMIN 06:09 → J6S 16:30
PROVIDERS: ADMIT Internal Medicine; ATTEND Registered Nurse
DX: G43.811 Other migraine, intractable, with status migrainosus (principal); R42 Dizziness and giddiness
CPT/HCPCS: 36415; 70450-TC; 80053; 83735; 84100; 85025; 93005; 93010; 99283-25